=== PATIENT | male | born 1980 | race American Indian/Alaskan Native ===

== ENCOUNTER 2019-09-20 13:35 | Emergency (ER) | payer SELFPAY ==
--- NOTE | 2019-09-20 15:37 | Event Note ---
ED Screening Note ED Screening Note: states that he has a cyst on the neck that began 3-4 months ago states he had lower abd pain that began three days ago no fever no n/v/d states he is having dark urine PMHx none no allergies to meds +tobacco non drinker no drug use This initial assessment/diagnostic orders/clinical plan/treatment(s) is/are subject to change based on patients health status, clinical progression and re- assessment by fellow clinical providers in the ED. Further treatment and workup at subsequent clinical providers discretion. Patient/guardian urged not to elope from the ED as their condition may be serious if not clinically assessed and managed. Initial orders include: labs, UA
[2019-09-20 15:38] VITALS: BP 139/90
[2019-09-20 16:10] LABS: Bilirubin,Urine NEG (Negative); Blood,Urine NEG (Negative); Color,Urine Yellow (Yellow); Hyaline Casts,Urine 1 /LPF; Mucus,Urine 3+ /HPF; Urobilinogen,Urine < 2.0 mg/dL (<2.0)
[2019-09-20 16:19] LABS: Basophils % (Auto) 0.7 % (0.0-1.8); Eosinophils % (Auto) 0.2 % (0.0-4.3); Hematocrit 41.7 % (35.5-45.6); Hemoglobin 13.7 gm/dl (11.8-15.2); Lymphocytes # (Auto) 1.7 K/mm3 (1.2-5.4); Lymphocytes % (Auto) 33.2 % (13.4-35.0); Mean Corpuscular HGB Conc 33 % (32-34); Mean Corpuscular Volume 93 fl (84-94); Monocytes # (Auto) 0.6 K/mm3 (0.0-0.8); Monocytes % (Auto) 10.8 % (0.0-7.3); Platelet Count 206 K/mm3 (140-440); Red Blood Count 4.48 M/mm3 (3.65-5.03); Red Cell Distribution Width 13.5 % (13.2-15.2)
[2019-09-20 16:53] LABS: Alanine Aminotransferase 11 units/L (7-56); Albumin 4.6 g/dL (3.9-5); BUN/Creatinine Ratio 19; Blood Urea Nitrogen 19 mg/dL (9-20); Hemolysis Index 12
--- NOTE | 2019-09-20 18:40 | Emergency Department Report ---
<ORION FLORIAN - Last Filed: 09/20/19 18:44> ED Abdominal Pain HPI - General Chief Complaint: Abdominal Pain Stated Complaint: ABD/NECK PAIN Time Seen by Provider: 09/20/19 15:35 Source: patient Mode of arrival: Ambulatory Limitations: No Limitations - History of Present Illness Initial Comments: states that he has a cyst on the neck that began 4-5 months ago states he had lower abd pain that began three days ago no fever no n/v/d states he is having dark urine, urinary frequency, and dysuria PMHx none no allergies to meds +tobacco non drinker no drug use MD Complaint: abdominal pain Onset/Timin -: days(s) Location: diffuse Radiation: none Migration to: no migration Severity: moderate Severity scale (0 -10): 5 Quality: sharp Consistency: intermittent Improves With: nothing Worsens With: nothing Associated Symptoms: dysuria. denies: nausea, vomiting, diarrhea, fever, chill s, constipation, hematuria - Related Data Allergies Allergy/AdvReac Type Severity Reaction Status Date / Time No Known Allergies Allergy Unverified 09/20/19 13:51 ED Review of Systems Constitutional: denies: chills, fever Respiratory: denies: cough, shortness of breath, wheezing Cardiovascular: denies: chest pain, palpitations Gastrointestinal: abdominal pain. denies: nausea, diarrhea Genitourinary: dysuria, frequency. denies: urgency Musculoskeletal: denies: back pain, joint swelling, arthralgia Skin: lesions (painful bump to posterior neck). denies: rash Neurological: denies: headache, weakness, paresthesias ED Past Medical Hx - Past Medical History Previous Medical History?: No - Surgical History Past Surgical History?: No - Social History Smoking Status: Never Smoker Substance Use Type: None ED Physical Exam - General Limitations: No Limitations General appearance: alert, in no apparent distress - Respiratory Respiratory exam: Present: normal lung sounds bilaterally. Absent: respiratory distress - Cardiovascular Cardiovascular Exam: Present: regular rate, normal rhythm. Absent: systolic murmur, diastolic murmur, rubs, gallop - GI/Abdominal GI/Abdominal exam: Present: soft, tenderness (left lower quadrant and right lower quadrant), normal bowel sounds. Absent: distended, guarding, rebound, rigid, organomegaly - Back Exam Back exam: Present: full ROM, CVA tenderness (R), CVA tenderness (L). Absent: muscle spasm, paraspinal tenderness, vertebral tenderness, rash noted - Neurological Exam Neurological exam: Present: alert, oriented X3, normal gait - Psychiatric Psychiatric exam: Present: normal affect, normal mood - Skin Skin exam: Present: warm, dry, intact, normal color, other (3-4 cm soft, round, and mobile tumor posterior neck, nontender, no erythema, no surrounding cellulitis). Absent: rash ED Medical Decision Making - Lab Data Result diagrams: 09/20/19 15:58 09/20/19 15:58 Lab Results 09/20/19 09/20/19 09/20/19 Range/Units 15:44 15:58 15:58 WBC 5.3 (4.5-11.0) K/mm3 RBC 4.48 (3.65-5.03) M/mm3 Hgb 13.7 (11.8-15.2) gm/dl Hct 41.7 (35.5-45.6) % MCV 93 (84-94) fl MCH 31 (28-32) pg MCHC 33 (32-34) % RDW 13.5 (13.2-15.2) % Plt Count 206 (140-440) K/mm3 Lymph % (Auto) 33.2 (13.4-35.0) % [place] % (Auto) 10.8 H (0.0-7.3) % Eos % (Auto) 0.2 (0.0-4.3) % Baso % (Auto) 0.7 (0.0-1.8) % Lymph # 1.7 (1.2-5.4) K/mm3 [place] # 0.6 (0.0-0.8) K/mm3 Eos # 0.0 (0.0-0.4) K/mm3 Baso # 0.0 (0.0-0.1) K/mm3 Seg Neutrophils % 55.1 (40.0-70.0) % Seg Neutrophils # 2.9 (1.8-7.7) K/mm3 Sodium 138 (137-145) mmol/L Potassium 4.5 (3.6-5.0) mmol/L Chloride 100.4 (98-107) mmol/L Carbon Dioxide 19 L (22-30) mmol/L Anion Gap 23 mmol/L BUN 19 (9-20) mg/dL Creatinine 1.0 (0.8-1.5) mg/dL Estimated GFR > 60 ml/min BUN/Creatinine Ratio 19 % Glucose 82 (75-100) mg/dL Calcium 10.0 (8.4-10.2) mg/dL Total Bilirubin 1.20 (0.1-1.2) mg/dL AST 18 (5-40) units/L ALT 11 (7-56) units/L Alkaline Phosphatase 83 (35-129) units/L Total Creatine Kinase 376 H (55-170) units/L Total Protein 7.7 (6.3-8.2) g/dL Albumin 4.6 (3.9-5) g/dL Albumin/Globulin Ratio 1.5 % Lipase 9 L (13-60) units/L Urine Color Yellow (Yellow) Urine Turbidity Clear (Clear) Urine pH 6.0 (5.0-7.0) Ur Specific [place] 1.030 (1.003-1.030) Urine Protein 30 mg/dl (Negative) mg/dL Urine Glucose (UA) Neg (Negative) mg/dL Urine Ketones 80 (Negative) mg/dL Urine Blood Neg (Negative) Urine Nitrite Neg (Negative) Urine Bilirubin Neg (Negative) Urine Urobilinogen < 2.0 (<2.0) mg/dL Ur Leukocyte Esterase Neg (Negative) Urine WBC (Auto) 2.0 (0.0-6.0) /HPF Urine RBC (Auto) 2.0 (0.0-6.0) /HPF Hyaline Casts 1 /LPF Urine Mucus 3+ /HPF - Medical Decision Making Vitals are stable inpatient in no acute distress. Right lower quadrant and left lower quadrant TTP, no guarding or rigidity, positive CVA tenderness bilaterally. 3-4 cm soft, round, and mobile tumor posterior neck, nontender. 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 Labs and CT of abdomen and pelvis ordered. CK 376, All other labs are unremarkable. CT pending. Chart signed to Nicanor Perez ED Disposition Clinical Impression: Ketonuria, Elevated creatine kinase Disposition: ELOPED Condition: Undetermined Referrals: PRIMARY CARE, [Primary Care Provider] - 3-5 Days Forms: AMA Form <NYASIA RAMON - Last Filed: 09/20/19 21:16> ED Review of Systems ROS: Stated complaint: ABD/NECK PAIN Other details as noted in HPI ED Course Vital Signs 09/20/19 15:36 Temperature 98.2 F Pulse Rate 98 H Respiratory 20 Rate Blood Pressure 139/90 O2 Sat by Pulse 98 Oximetry ED Medical Decision Making - Lab Data Result diagrams: 09/20/19 15:58 09/20/19 15:58 - Radiology Data Radiology results: report reviewed Patient: RAFAEL QUAN MR#: [id number] : 1980 Acct:[id number] Age/Sex: 39 / M ADM Date: 09/20/19 Loc: ED Attending Dr: Ordering Physician: MELVINA MAY Date of Service: 09/20/19 Procedure(s): CT abdomen pelvis wo con Accession Number(s): [id number] cc: MELVINA MAY CT abdomen pelvis wo con INDICATION: abdominal pain, CVA tenderness, r/o stones. TECHNIQUE: All CT scans at this location are performed using the following dose modulation technique: Automated exposure control. Helical slices were obtained through the abdomen and pelvis. No contrast is administered. COMPARISON: None available. FINDINGS: Abdomen: The lung bases are clear. Liver, spleen, pancreas, adrenal glands, and small bowel are unremarkable. There are no renal or ureteral calculi. There is no hydronephrosis. There is no obstruction, inflammation, or free air. There are no abnormal collections. Pelvis: There is no obstruction or inflammation. Phleboliths are noted. There is no adenopathy. The appendix is unremarkable. On review of bone windows, no acute osseous abnormalities are seen. IMPRESSION: 1. There is no obstruction, inflammation, or free air. There are no abnormal fluid collections. There are no renal or ureteral calculi.. There is no hydronephrosis. - Medical Decision Making Provider picked up chart from nurse practitioner Jose. CT abdomen and pelvis are pending shows normal examination review of labs shows a patient has elevated CK of 376 and ketonuria at 80 with mild protein at 30. This provider initiated an order for IV fluids. Patient states he does not have time to stay and eloped. Critical care attestation.: If time is entered above; I have spent that time in minutes in the direct care of this critically ill patient, excluding procedure time. ED Disposition Is pt being admited?: No Does the pt Need Aspirin: No
--- NOTE | 2019-09-20 20:04 | Cat Scan Report ---
CT abdomen pelvis wo con INDICATION: abdominal pain, CVA tenderness, r/o stones. TECHNIQUE: All CT scans at this location are performed using the following dose modulation technique: Automated exposure control. Helical slices were obtained through the abdomen and pelvis. No contrast is adminis tered. COMPARISON: None available. FINDINGS: Abdomen: The lung bases are clear. Liver, spleen, pancreas, adrenal glands, and small bowel are unrem arkable. There are no renal or ureteral calculi. There is no hydronephrosis. There is no obstruction, inflammation, or free air. There are no abnormal collections. Pelvis: There is no obstruction or inflammation. Phleboliths are noted. There is no adenopathy. The a ppendix is unremarkable. On review of bone windows, no acute osseous abnormalities are seen. IMPRESSION: 1. There is no obstruction, inflammation, or free air. There are no abnormal fluid collections. There are no renal or ureteral calculi.. There is no hydronephrosis. Signer Name: Gregory Tafoya MD Signed: 09/20/2019 7:59 PM Workstation Name: [id number]
[2019-09-20] MEDS ORDERED: SODIUM CHLORIDE 0.9% 1000 ML 1,000 ML IV ONE (21:01)
== END 2019-09-20 21:18 | disposition left against medical advice (07) ==
LOC: ED 13:35
DX: R82.4 Acetonuria (principal); R74.8 Abnormal levels of other serum enzymes; Z79.899 Other long term (current) drug therapy
CPT/HCPCS: 36415; 74176; 80053; 81001; 82550; 83690; 85025

== ENCOUNTER 2021-04-01 01:41 | Emergency (ER) | payer SELFPAY ==
[2021-04-01 04:04] VITALS: BP 117/82
[2021-04-01] MEDS ORDERED: TETRACAINE 0.5% OPHTH SOLN 4ML OU STA (08:42)
--- NOTE | 2021-04-01 08:42 | Emergency Department Report ---
ED Eye Problem HPI - General Chief complaint: Eye Problems Stated complaint: EYE Time Seen by Provider: 04/01/21 08:36 Source: patient Mode of arrival: Ambulatory Limitations: No Limitations - History of Present Illness Initial comments: 41-year-old male presents to the ER today complaints of right eye redness and drainage. Patient states that his symptoms started gradually yesterday. He states that yesterday his Left eye started with burning sensation and some itching, that he noticed that he started to turn red, and he has been having this gritty sensation in his eye area and also has been having photosensitivity. He reports increased tearing to left eye as well as some blurry vision and this morning he woke up with his left eye matted and crusted in he noticed some yellow-green discharge from the eye. He denies any particular injury to his eye. He does not do any grinding or welding. He does not wear contacts or glasses. MD chief complaint: eye pain, eye redness, vision change -: Gradual (yesterday ) Location: left eye - Related Data Previous Rx's Medication Instructions Recorded Last Taken Type Erythromycin [Erythromycin Ophth 1 applic OP 5XD 7 Days #1 tube 04/01/21 Unknown Rx Oint] Allergies Allergy/AdvReac Type Severity Reaction Status Date / Time No Known Allergies Allergy Unverified 09/20/19 13:51 ED Review of Systems ROS: Stated complaint: EYE Other details as noted in HPI Comment: All other systems reviewed and negative Constitutional: denies: chills, fever Eyes: eye pain, eye discharge, vision change, other (left eye tearing, drainage, gritty ) ENT: denies: ear pain, throat pain, dental pain, hearing loss, epistaxis, congestion Respiratory: denies: cough, shortness of breath, wheezing Cardiovascular: denies: chest pain, palpitations, dyspnea on exertion, edema, syncope, paroxysmal nocturnal dyspnea Gastrointestinal: denies: abdominal pain, nausea, vomiting, diarrhea, constipation, hematemesis, hematochezia Genitourinary: denies: urgency, dysuria, frequency, hematuria, discharge, testicular pain, testicular mass Musculoskeletal: denies: back pain, joint swelling, arthralgia Skin: denies: rash, lesions Neurological: denies: headache, weakness, numbness, paresthesias, confusion, abnormal gait, vertigo Psychiatric: denies: anxiety, depression, auditory hallucinations, visual hallucinations, homicidal thoughts, suicidal thoughts Hematological/Lymphatic: denies: easy bleeding, easy bruising, swollen glands ED Past Medical Hx - Past Medical History Previous Medical History?: No - Surgical History Past Surgical History?: No - Social History Smoking Status: Never Smoker Substance Use Type: None - Medications Home Medications: Home Medications Medication Instructions Recorded Confirmed Last Taken Type Erythromycin [Erythromycin Ophth 1 applic OP 5XD 7 Days #1 tube 04/01/21 Unknown Rx Oint] ED Physical Exam - General Limitations: No Limitations General appearance: alert, in no apparent distress - Head Head exam: Present: atraumatic, normocephalic, normal inspection - Eye Eye exam: Present: PERRL, EOMI, conjunctival injection (right eye ), other (Increased tearing noted to the left eye with scant amount of yellow mucousy discharge along the eyelids in the corner of the left eye). Absent: periorbital swelling, periorbital tenderness Pupils: Present: normal accommodation, other (Fernando lamp exam shows no fluorescein uptake with no abrasions or ulcerations or dendritic lesions apparent) - Expanded Eye Exam Expanded Posterior chamber: Deferred: Bilateral, Normal Inspection: Bilateral, Papilledema: Bilateral, Hemorrhage: Bilateral, Retinal Detachment: Bilateral, AV Nicking: Bilateral, [place]: Bilateral Visual acuity (R) = 20/: 50 Visual acuity (L) = 20/: 20 With correction: No - Neck Neck exam: Present: normal inspection, full ROM - Cardiovascular Cardiovascular Exam: Present: regular rate, normal rhythm, normal heart sounds - Neurological Exam Neurological exam: Present: alert, oriented X3, CN II-XII intact, normal gait - Psychiatric Psychiatric exam: Present: normal affect, normal mood ED Course Vital Signs 04/01/21 04/01/21 03:56 09:18 Temperature 97.7 F Pulse Rate 71 89 Respiratory 18 16 Rate Blood Pressure 117/82 O2 Sat by Pulse 99 98 Oximetry Critical care attestation.: If time is entered above; I have spent that time in minutes in the direct care of this critically ill patient, excluding procedure time. ED Disposition Clinical Impression: Conjunctivitis Disposition: DC-01 TO HOME OR SELFCARE Is pt being admited?: No Does the pt Need Aspirin: No Condition: Stable Instructions: Viral Conjunctivitis, Adult, Bacterial Conjunctivitis, Adult Additional Instructions: Use antibiotic ointment as prescribed. I recommend that you wash your hands frequently especially after touching your eye. Follow-up with the eye speci alist listed on your discharge instructions if your symptoms persist. Return to the ER if your symptoms worsens or changes in any way. Prescriptions: Erythromycin [Erythromycin Ophth Oint] 1 applic OP 5XD 7 Days #1 tube Referrals: THAI ANGUIANO MD [Staff Physician] - 7-10 days Forms: Work/School Release Form(ED) Time of Disposition: 09:12
[2021-04-01] MEDS ORDERED: FLUORESCEIN 1 MG STRIP OP ONE (08:50)
== END 2021-04-01 09:18 | disposition home or self-care (01) ==
LOC: ED 01:41
DX: H10.9 Unspecified conjunctivitis (principal)
CPT/HCPCS: 99283